=== PATIENT | female | born 1945 | race Caucasian/White ===

== ENCOUNTER 2023-06-27 12:54 | Outpatient (AMB) | payer MEDICARE, OTHER, SELFPAY ==
--- NOTE | 2023-06-27 13:04 | HO.SPINEOV ---
Vital Signs 06/27/23 13:05 Height 5 ft 4 in Weight 136 lb BMI 23.3 Intake Visit Reasons: Lumbar radiculopathy Intake Note: Ms. Jewell is here today c/o low back pain. Foreign [employer] Position Clerk Required: No Physical Exam Vital Signs: BMI result Body Mass Index 23.3 Assessment & Plan Assessment & Plan (1) Lumbar disc herniation: Code(s): M51.26 - Other intervertebral disc displacement, lumbar region Category: Medical Plan Dear [place] Thank you for referring Mrs Jewell to our office today. She is a very nice 77-year-old with previous history of a left L4-5 diskectomy done in [place] in 2010, who comes today for evaluation of they back pain going down to her right leg, into her outer calf which started a month ago or so [place] who is recently recovering from issues with cancer. The symptoms may have started when she was doing some lifting. She does not exactly recall but it has been a period of about a month with intermittent and at times quite severe pain going down into her right leg. She ultimately underwent an x-ray and an MRI done at [facility] which showed a herniated disc fragment on the right at L4-5. The pain can be variable, and at times can be associated with activity but then other times it can be there simply when she is lying down at night. She can not take NSAIDs secondary to history of a familial clotting disease, and she had a kidney issue previously. Tylenol does not have much effect. She will take a baby aspirin from time to time if the pain gets severe. She has not yet done any physical therapy. She is previously done cortisone injections but none yet at this time. PMH: Patient has a history of hypertension, macular degeneration history of breast cancer with mastectomy and reconstruction in 1993. She had skin flap from her abdomen taken and placed over the skin of the breast for reconstruction. She has a history of factor 5 Leiden, she has never had a blood clot herself, but has had family members who had strokes because of it. She found it on a DNA workup that was done [id number] but has never seen a major account representative formally for this. She has had 2 C sections, a tubal with a tubal reconstruction. She has had bilateral hip replacements. As mentioned she also had a left L4-5 decompression and diskectomy. Social hx: She does not smoke, does not drink only occasionally uses alcohol Medications: To Guillaume, benazepril, Crestor and baby aspirin Allergies: Lisinopril and tape Physical exam: She is awake alert oriented no acute distress, she has full strength of the lower extremities with intact reflexes. Gait is slightly antalgic Imaging review: Lumbar MRI done at [facility] in May 2023 shows degenerative disc disease in the lumbar spine, worse at L4-5. There is a postsurgical defect at L4-5 on the left. She has a herniated disc fragment on the right descending down behind the L5 vertebral body. There is some moderate right L4 foraminal stenosis. On x-ray from [facility] I can see that she has near [id number] contact with the disc at this level L4-5. Impression: 77-year-old female history of a previous L4-5 diskectomy done in 2010 in [place], presents with acute onset of back pain and right leg pain going down into her outer calf about 1 month ago. On her MRI she has a disc herniation on the right at L4-5 with a free fragment behind the body of L5 slightly indenting the thecal sac. I do not see any overt nerve compression although there is some posterior displacement. I suspect when she is changing positions that this piece likely is moving around in inflaming the nerve when she gets in just the right position. As with most disc herniations, 90% of them will resolve on their own if left alone and given time. Since she has no focal deficits and the pain is only intermittent and not disabling, we should treat this conservatively with a little bit of physical therapy and tincture of time. I gave her a script for PT, and we will see her back in 6 weeks. If the pain escalates, or is just continuing to be really bothersome I think she would be a good candidate for diskectomy. Thank you for allowing us to care for your patient. The total time spent with this visit with this patient was 45 minutes reviewing history, physical exam, lumbar imaging review, and implementation of treatment plan or further diagnostic testing Darek Varner MD,PhD [facility] Orders: Orders PT Evaluation and Treatment Today M51.26 - Other intervertebral disc displacement, lumbar region Coding Level of Care Code New Pt Level 4 (62890) Diagnoses Lumbar disc herniation M51.26
[2023-06-27 13:05] VITALS: BMI 23.3
== END 2023-06-27 13:48 | disposition home or self-care (01) ==
PROVIDERS: Referring Provider Physician Assistant; Visit Provider Physician Assistant
DX: M51.26 Other intervertebral disc displacement, lumbar region (principal)
CPT/HCPCS: 99204

== ENCOUNTER → 2023-06-27 12:54 | Outpatient (BNVA) | payer MEDICARE, OTHER, SELFPAY | PROVIDERS: Visit Provider Physician Assistant | DX: M51.26 Other intervertebral disc displacement, lumbar region (principal) | CPT/HCPCS: 99202 ==